=== PATIENT | female | born 1990 | race African-American/Black ===

== ENCOUNTER 2023-05-27 06:58 | Emergency (ER) | payer BC, OTHER ==
[2023-05-27 07:25] VITALS: BMI 31.2
[2023-05-27] MEDS ORDERED: SODIUM CHLORIDE 0.9% 500 ML INFUS.BAG IV ONE (08:01)
[2023-05-27] MEDS ORDERED: ONDANSETRON 4 MG/2 ML VIAL IVPUSH ONE (08:01)
[2023-05-27] MEDS ORDERED: ONDANSETRON 4 MG/2 ML VIAL ONE (08:14)
[2023-05-27 08:33] LABS: BASO % 0.5 % (0-2.0); EOS % 0.2 % (0-4.5); HEMATOCRIT 38.5 % (32.4-45.2); HEMOGLOBIN 12.4 GM/dL (10.7-15.3); LYMPH % 9.4 % (8-40); MCH 25.1 pg (25.7-33.7); MCHC 32.2 g/dl (32.0-36.0); MEAN PLT VOLUME 7.6 fl (7.5-11.1); MONO % 3.2 % (3.8-10.2); NEUT % 86.7 % (42.8-82.8); PLATELET COUNT 397 10^3/uL (134-434); RBC 4.94 M/mm3 (3.60-5.2); RDW 14.9 % (11.6-15.6); WHITE BLOOD COUNT 9.1 K/mm3 (4.0-10.0)
[2023-05-27 08:40] LABS: INR 1.12 (0.83-1.09)
[2023-05-27 08:42] LABS: ACTIVATED PTT 31.6 SECONDS (25.2-36.5)
[2023-05-27 08:48] LABS: POTASSIUM 4.8 mmol/L (3.5-5.1)
[2023-05-27 08:50] LABS: CALCIUM 8.9 mg/dL (8.5-10.1)
[2023-05-27 08:51] LABS: BLOOD UREA NITROGEN 10.4 mg/dL (7-18)
[2023-05-27 08:54] LABS: CREATININE 0.8 mg/dL (0.55-1.3)
[2023-05-27 08:55] LABS: BILIRUBIN,TOTAL 0.2 mg/dL (0.2-1); TOT PROT 8.2 g/dl (6.4-8.2)
[2023-05-27 10:24] LABS: URINE APPEARANCE Clear; URINE BILIRUBIN Negative (NEGATIVE); URINE COLOR Yellow; URINE GLUCOSE (UA) Negative (NEGATIVE); URINE KETONE Negative (NEGATIVE); URINE LEUK ESTERASE Negative (NEGATIVE); URINE NITRITE Negative (NEGATIVE); URINE PROTEIN Negative (NEGATIVE); URINE UROBILINOGEN 0.2 mg/dL (0.2-1.0)
[2023-05-27 10:55] VITALS: BP 127/74; PULSE 73; RESP 21; TEMP 98.3
== END 2023-05-27 12:40 | disposition home or self-care (01) ==
LOC: JER 06:58
PROC: 3E033NZ Introduction of Analgesics, Hypnotics, Sedatives into Peripheral Vein, Percutaneous Approach (ICD-10-PCS; principal; 2023-05-27)
DX: O00.90 Unspecified ectopic pregnancy without intrauterine pregnancy (principal); O99.891 Other specified diseases and conditions complicating pregnancy; R42 Dizziness and giddiness
CPT/HCPCS: 36415; 76604; 76705-TC; 76817-TC; 80053; 81003; 84702; 85025; 85610; 85730; 86850; 86900; 86901; 87086; 93308; 99284-25